=== PATIENT | female | born 1985 | race Two or more races ===

== ENCOUNTER 2021-02-20 11:30 | Emergency (ER) | payer MEDICAID, OTHER ==
[~2021-02-20] VITALS: Ht 165.1 cm; Wt 75.0 kg
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
--- NOTE | 2021-02-20 12:11 | NUR ---
HASMUKH AREVALO TO BEDSIDE FOR EVALUATION.
[2021-02-20] MEDS ORDERED: ONDANSETRON 2MG/ML, 2ML ONE (12:15)
[2021-02-20] MEDS ORDERED: FAMOTIDINE 20 MG/2 ML ONE (12:16)
[2021-02-20 12:29] LABS: BASOPHILS % (AUTO) 1 % (0-1); EOSINOPHILS % (AUTO) 0 % (1-7); LYMPHOCYTES % (AUTO) 27 % (22-44); MEAN CORPUSCULAR HEMOGLOBIN 31.4 pg (27.0-34.8); MEAN CORPUSCULAR HGB CONC 33.7 g/dL (32.4-35.8); MEAN PLATELET VOLUME 8.5 fL (7.4-10.4); MONOCYTES % (AUTO) 14 % (2-9); NEUTROPHILS % (AUTO) 57 % (42-75); PLATELET COUNT 128 x10^3/uL (130-400); RED BLOOD COUNT 4.19 x10^6/uL (3.82-5.3); RED CELL DISTRIBUTION WIDTH 13.4 % (9.6-15.2)
[2021-02-20] MEDS ORDERED: SODIUM CHLORIDE 0.9% 1,000ML IVBOLUS ONE (12:30)
[2021-02-20] MEDS ORDERED: ONDANSETRON 2MG/ML, 2ML IVPush ONE (12:30)
[2021-02-20] MEDS ORDERED: FAMOTIDINE 20 MG/2 ML IVPush ONE (12:30)
[2021-02-20] MEDS ORDERED: PLEASE ENTER ALLERGIES MC SCH (12:30)
[2021-02-20 12:40] LABS: ALANINE AMINOTRANSFERASE 38 U/L (12-78); ALBUMIN 3.2 g/dL (3.4-5.0); ANION GAP 3 mmol/L (5-15); CALCIUM 7.7 mg/dL (8.5-10.1); CHLORIDE 108 mmol/L (98-107); CREATININE 0.88 mg/dL (0.55-1.02)
[2021-02-20 12:45] LABS: ALKALINE PHOSPHATASE 78 U/L (45-117); BILIRUBIN,TOTAL 0.4 mg/dL (0.2-1.0); TOTAL PROTEIN 7.8 g/dL (6.4-8.2)
[2021-02-20 13:34] LABS: MICROSCOPIC INDICATED
--- NOTE | 2021-02-20 13:37 | NUR ---
PT RESTING IN BED. VSS. NADN. AWAITING CT READ
[2021-02-20 14:29] VITALS: BP 141/91
--- NOTE | 2021-02-20 14:30 | NUR ---
BREAK RN: PT ABLE TO AMB, SLIGHTLY UNSTEADY. PER FAMILY SEEMS TO BE AT HER BASELINE. MD NOTIFIED.
--- NOTE | 2021-02-20 14:56 | NUR ---
IV DC'D WITH CANNULA INTACT. REVIEWED DC INSTRUCTIONS WITH PT AND PTS PARENTS. UNDERSTANDING VERBALIZED. PT LEFT AMB WITH FAMILY.
== END 2021-02-20 14:59 | disposition home or self-care (01) ==
LOC: ED 14:50
DX: K52.9 Noninfective gastroenteritis and colitis, unspecified (principal); G51.0 Bell's palsy; R55 Syncope and collapse; R94.31 Abnormal electrocardiogram [ECG] [EKG]
CPT/HCPCS: 36415; 70450; 80053; 81001; 84703; 85025; 93005; 96361; 96374; 96375; 99285; J2405; J7030